=== PATIENT | male | born 1955 | race Hispanic/Latino ===

== ENCOUNTER 2023-06-20 19:29 | Inpatient (IN) | payer OTHER, SELFPAY ==
[2023-06-20 20:40] LABS: Absolute Lymphocytes (CBC) 0.4 K/uL (0.7-4.9); Hematocrit 37.5 % (39.6-49.0); Lymphocytes % 2.3 % (15.3-44.8); MPV 7.1 fL (7.6-11.3); RBC Red Blood Cell Count 4.17 M/uL (4.33-5.43)
[2023-06-20 20:48] LABS: Protime INR 1.14
[2023-06-20 20:59] LABS: Albumin 3.3 g/dL (3.4-5.0); Bilirubin Total 0.4 mg/dL (0.2-1.0); Potassium 3.9 mEq/L (3.5-5.1); Protein, Total 7.7 g/dL (6.4-8.2)
--- NOTE | 2023-06-20 21:00 | RAD REPORT ---
EXAM DESCRIPTION: RAD - Chest Single View - 06/20/2023 8:46 pm CLINICAL HISTORY: FEVER Chest pain. COMPARISON: No comparisons FINDINGS: Portable technique limits examination quality. Moderate opacity in the right lung base likely represents a pneumonia. The heart is normal in size. N o displaced fractures. IMPRESSION: Developing right lower lobe pneumonia.
--- NOTE | 2023-06-20 21:13 | RAD REPORT ---
EXAM DESCRIPTION: CT - Chest Abd Pelvis Wo Con - 06/20/2023 9:02 pm CLINICAL HISTORY: Chest and abdomen pain. Cough;Abdominal distention COMPARISON: No comparisons TECHNIQUE: A limited noncontrast study was performed. All CT scans are performed using dose optimization technique as appropriate and may include automated exposure control or mA/KV adjustment according to patient size. FINDINGS: The lungs are clear.No pleural or pericardial effusion.Calcified right pleural inferiorly. No intrathoracic adenopathy.Calcified mediastinal and hilar lymphadenopathy. The liver demonstrates cysts. Spleen, pancreas, adrenal glands and kidneys are within normal limits. No bowel obstruction, free air, free fluid or abscess. Normal appendix. Moderate stool is present thr oughout the colon. No pathologic lymphadenopathy in the abdomen or pelvis. Moderate lumbar degenerative changes. T8 and T9 fusion. Suprapubic catheter is in place. The prostate gland is significantly enlarged. IMPRESSION: Significant prostatomegaly.Suprapubic catheter is in place. Moderate stool throughout the colon.
[2023-06-20] MEDS ORDERED: FAMOTIDINE 20 MG/2 ML VIAL IV ONE (21:36)
[2023-06-20] MEDS ORDERED: CEFTRIAXONE 1000 MG/VIAL ONE (21:36)
[2023-06-20] MEDS ORDERED: NA CHLORIDE 0.9% 2,000 ML ONE (21:36)
[2023-06-20] MEDS ORDERED: ACETAMINOPHEN 500 MG TAB ONE (21:36)
[2023-06-20 21:47] LABS: Magnesium 2.6 mg/dL (1.6-2.4)
--- NOTE | 2023-06-20 21:54 | ER ---
Nurse's Notes [facility] Name: Kev Garduno Age: 68 yrs Sex: Male : 1955 Arrival Date: 06/20/2023 Time: 19:29 Bed 15 Private MD: Diagnosis: Enlarged prostate with lower urinary tract symptoms;Pneumonia due to other specified bacteria;Fever, unspecified;Other mechanical complication of urinary (indwelling) catheter;Weakness;Unspecified kidney failure;Elevated white blood cell count Presentation: 06/20 19:58 Chief complaint: Patient's son or daughter states: pt was found today complaining of cm10 weakness, vomiting and fever. Deny any sick contacts. Pt noted to have a suprapubic catheter in place that he is supposed to have removed on July 08. Coronavirus screen: Vaccine status: Patient reports receiving the 2nd dose of the covid vaccine. Ebola Screen: No symptoms or risks identified at this time. Initial Sepsis Screen: Does the patient meet any 2 criteria? HR > 90 bpm. Does the patient have a suspected source of infection? No. Patient's initial sepsis screen is negative. Risk Assessment: Do you want to hurt yourself or someone else? Patient reports no desire to harm self or others. Onset of symptoms was June 20, 2023. 19:58 Method Of Arrival: Wheelchair cm10 19:58 Acuity: BETTIE 3 cm10 Triage Assessment: 20:01 General: Appears in no apparent distress. comfortable, Behavior is calm, cooperative. cm10 Pain: Denies pain. GI: Reports nausea, vomiting. Historical: - Allergies: 20:00 No Known Allergies; cm10 - PMHx: 20:00 enlarged prostate; cm10 - Immunization history:: Adult Immunizations up to date. - Social history:: Smoking status: Patient/guardian denies using tobacco. Screenin:41 [facility] ED Fall Risk Assessment (Adult) History of falling in the last 3 months, vc1 including since admission No falls in past 3 months (0 pts) Confusion or Disorientation No (0 pts) Intoxicated or Sedated No (0 pts) Impaired Gait No (0 pts) Mobility Assist Device Used No (0 pt) Altered Elimination No (0 pt) Score/Fall Risk Level 0 - 2 = Low Risk Oriented to surroundings, Maintained a safe environment, Educated pt \T\ family on fall prevention, incl call for assistance when getting out of bed. Abuse screen: Denies threats or abuse. Nutritional screening: No deficits noted. Tuberculosis screening: No symptoms or risk factors identified. Assessment: 20:41 General: Appears in no apparent distress. comfortable, Behavior is calm, cooperative, nj1 appropriate for age. Pain: Denies pain. Neuro: Level of Consciousness is awake, alert, obeys commands, Oriented to person, place, time, situation. Cardiovascular: Patient's skin is warm and dry. Respiratory: Airway is patent Respiratory effort is even, unlabored. 21:30 Reassessment: No changes from previously documented assessment. Patient and/or family vc1 updated on plan of care and expected duration. Pain level reassessed. Patient is alert, oriented x 3, equal unlabored respirations, skin warm/dry/pink. Assumed care from RUI Younger. 22:30 Reassessment: No changes from previously documented assessment. Patient and/or family vc1 updated on plan of care and expected duration. Pain level reassessed. Patient is alert, oriented x 3, equal unlabored respirations, skin warm/dry/pink. Patient denies pain at this time. Vital Signs: 19:58 BP 125 / 55; Pulse 103; Resp 18; Temp 99.4; Pulse Ox 94% on R/A; Weight 56 kg; Height 6 cm10 ft. 0 in. ; Pain 0/10; 21:42 BP 119 / 64; Pulse 97; Resp 17; Pulse Ox 100% ; vc1 22:30 BP 108 / 67; Pulse 95; Resp 19; Pulse Ox 99% ; vc1 19:58 Body Mass Index 16.74 (56.00 kg, 182.88 cm) cm10 19:58 Pain Scale: Adult cm10 ED Course: 19:33 Patient arrived in ED. ts1 20:00 Triage completed. cm10 20:01 Arm band placed on. cm10 20:08 Dav Benitez MD is Attending Physician. zeke 20:15 Inserted saline lock: 20 gauge in right forearm, using aseptic technique. Blood kl collected. 20:24 Carisa Sorensen, URI is Primary Nurse. nj1 20:47 Chest Single View XRAY In Process Unspecified. EDMS 21:03 CT Chest Abdomen Pelvis W/O Contrast In Process Unspecified. EDMS 21:41 Patient has correct armband on for positive identification. Bed in low position. Call vc1 light in reach. Client placed on continuous cardiac and pulse oximetry monitoring. NIBP monitoring applied. 21:51 Jim Mensah MD is Hospitalizing Provider. [facility] 21:54 Delon Nicholson MD is Hospitalizing Provider. id1 21:54 Urinalysis w/ reflexes Sent. rv1 23:46 No provider procedures requiring assistance completed. Patient admitted, IV remains in vc1 place. Administered Medications: 21:39 Drug: Famotidine IVP 20 mg Route: IVP; Site: right forearm; nj1 21:39 Drug: Acetaminophen PO 1000 mg Route: PO; nj1 21:40 Drug: NS 0.9% IV 1000 ml Route: IV; Rate: 1 bolus; Site: right forearm; vc1 21:40 Drug: Rocephin IV 1 grams Route: IV; Rate: per protocol; Site: right forearm; vc1 22:03 Drug: levofloxacin IVPB 500 mg Volume: 100 ml; Route: IVPB; Infused Over: 60 mins; vc1 Site: right forearm; 22:43 Drug: NS 0.9% IV 1000 ml Route: IV; Rate: 125 ml/hr; Site: right forearm; vc1 Medication: 21:41 VIS not applicable for this client. vc1 Outcome: 21:53 Decision to Hospitalize by Provider. [facility] 23:46 Admitted to Med/surg accompanied by nurse, via stretcher, room 220. vc1 23:46 Condition: good 23:46 Instructed on the need for admit. 23:46 Patient left the ED. vc1 Signatures: Dispatcher [employer] EDMS Christin Mercado RN RN kl Anderson, Corey, MD MD cha Attema, Lee, FISH TECHNOLOGIST-C FISH TECHNOLOGIST-Cla1 Aura Dupree RN RN vc1 Amna Kilgore rv1 Carisa Sorensen RN RN nj1 Olivia Justin PAS PAS ts1 Griselda Tee RN RN cm10
--- NOTE | 2023-06-20 21:54 | EDPHYS ---
Physician Documentation [facility] Name: Kev Garduno Age: 68 yrs Sex: Male : 1955 Arrival Date: 06/20/2023 Time: 19:29 Bed 15 Private MD: ED Physician Dav Benitez HPI: 06/20 20:36 This 68 yrs old Male presents to ER via Wheelchair with complaints of Fever, zeke Nausea/Vomiting, General Weakness. 20:36 The patient reports fever, that was measured at 102 degrees Fahrenheit. Onset: The zeke symptoms/episode began/occurred 2 day(s) ago. Modifying factors: there are no obvious modifying factors. Associated signs and symptoms: Pertinent positives: dysuria. Severity of symptoms: At their worst the symptoms were mild in the emergency department the symptoms are unchanged. The patient has not experienced similar symptoms in the past. Historical: - Allergies: 20:00 No Known Allergies; cm10 - PMHx: 20:00 enlarged prostate; cm10 - Immunization history:: Adult Immunizations up to date. - Social history:: Smoking status: Patient/guardian denies using tobacco. ROS: 20:37 Eyes: Negative for injury, pain, redness, and discharge, ENT: Negative for injury, zeke pain, and discharge, Neck: Negative for injury, pain, and swelling, Cardiovascular: Negative for chest pain, palpitations, and edema, Respiratory: Negative for shortness of breath, cough, wheezing, and pleuritic chest pain, Abdomen/GI: Negative for abdominal pain, nausea, vomiting, diarrhea, and constipation, Back: Negative for injury and pain, MS/Extremity: Negative for injury and deformity, Skin: Negative for injury, rash, and discoloration, Neuro: Negative for headache, weakness, numbness, tingling, and seizure, Psych: Negative for depression, anxiety, suicide ideation, homicidal ideation, and hallucinations, Allergy/Immunology: Negative for hives, rash, and allergies, Endocrine: Negative for neck swelling, polydipsia, polyuria, polyphagia, and marked weight changes, Hematologic/Lymphatic: Negative for swollen nodes, abnormal bleeding, and unusual bruising. 20:37 Constitutional: Positive for chills, fatigue, fever. 20:37 : Positive for burning with urination. Exam: 20:37 Head/Face: Normocephalic, atraumatic. Eyes: Pupils equal round and reactive to light, zeke extra-ocular motions intact. Lids and lashes normal. Conjunctiva and sclera are non-icteric and not injected. Cornea within normal limits. Periorbital areas with no swelling, redness, or edema. ENT: Nares patent. No nasal discharge, no septal abnormalities noted. Tympanic membranes are normal and external auditory canals are clear. Oropharynx with no redness, swelling, or masses, exudates, or evidence of obstruction, uvula midline. Mucous membranes moist. Neck: Trachea midline, no thyromegaly or masses palpated, and no cervical lymphadenopathy. Supple, full range of motion without nuchal rigidity, or vertebral point tenderness. No Meningismus. Chest/axilla: Normal chest wall appearance and motion. Nontender with no deformity. No lesions are appreciated. Cardiovascular: Regular rate and rhythm with a normal S1 and S2. No gallops, murmurs, or rubs. Normal PMI, no JVD. No pulse deficits. Respiratory: Lungs have equal breath sounds bilaterally, clear to auscultation and percussion. No rales, rhonchi or wheezes noted. No increased work of breathing, no retractions or nasal flaring. Abdomen/GI: Soft, non-tender, with normal bowel sounds. No distension or tympany. No guarding or rebound. No evidence of tenderness throughout. Back: No spinal tenderness. No costovertebral tenderness. Full range of motion. Male : Normal genitalia with no discharge or lesions. Skin: Warm, dry with normal turgor. Normal color with no rashes, no lesions, and no evidence of cellulitis. MS/ Extremity: Pulses equal, no cyanosis. Neurovascular intact. Full, normal range of motion. Neuro: Awake and alert, GCS 15, oriented to person, place, time, and situation. Cranial nerves II-XII grossly intact. Motor strength 5/5 in all extremities. Sensory grossly intact. Cerebellar exam normal. Normal gait. Psych: Awake, alert, with orientation to person, place and time. Behavior, mood, and affect are within normal limits. 20:37 Constitutional: The patient appears febrile. 20:40 ECG was reviewed by the Attending Physician. [facility] Vital Signs: 19:58 BP 125 / 55; Pulse 103; Resp 18; Temp 99.4; Pulse Ox 94% on R/A; Weight 56 kg; Height 6 cm10 ft. 0 in. ; Pain 0/10; 21:42 BP 119 / 64; Pulse 97; Resp 17; Pulse Ox 100% ; vc1 22:30 BP 108 / 67; Pulse 95; Resp 19; Pulse Ox 99% ; vc1 19:58 Body Mass Index 16.74 (56.00 kg, 182.88 cm) cm10 19:58 Pain Scale: Adult cm10 MDM: 20:08 Patient medically screened. zeke 20:38 Differential diagnosis: viral Infection, bacterial infection, URI, bronchitis, zeke pneumonia UTI, gastroenteritis. Differential Diagnosis altered mental status, sepsis, flu. Data reviewed: vital signs, nurses notes, lab test result(s), EKG, radiologic studies, CT scan, plain films. Consideration of Admission/Observation Escalation of care including admission/observation considered. I considered the following discharge prescriptions or medication management in the emergency department Medications were administered in the Emergency Department. See MAR. Test considered but Not performed: Ultrasound no abd usg. Care significantly affected by the following chronic conditions: bph. Counseling: I had a detailed discussion with the patient and/or guardian regarding: the historical points, exam findings, and any diagnostic results supporting the discharge/admit diagnosis, lab results, radiology results. 06/20 20:16 Order name: Blood Culture Adult (2) 06/20 20:16 Order name: CBC with Diff; Complete Time: 21:28 06/20 20:16 Order name: CMP; Complete Time: 21:47 06/20 20:16 Order name: Lactate w/ 2H reflex if indic.; Complete Time: 21:28 06/20 20:16 Order name: Protime (+inr); Complete Time: 21:28 06/20 20:16 Order name: Ptt, Activated; Complete Time: 21:28 06/20 20:16 Order name: Urinalysis w/ reflexes 06/20 20:19 Order name: COVID-19 SARS RT PCR; Complete Time: 21:28 la1 06/20 20:19 Order name: Flu; Complete Time: 21:28 la 06/20 21:18 Order name: NT PRO-BNP; Complete Time: 21:47 EDMS 06/20 21:18 Order name: Magnesium; Complete Time: 21:47 EDMS 06/20 22:15 Order name: Urine Culture EDCO 06/20 20:16 Order name: Chest Single View XRAY; Complete Time: 21:28 06/20 20:27 Order name: CT Chest Abdomen Pelvis W/O Contrast; Complete Time: 21:28 [facility] 06/20 20:16 Order name: EKG; Complete Time: 20:17 06/20 20:16 Order name: Accucheck; Complete Time: 21:41 06/20 20:16 Order name: Cardiac monitoring; Complete Time: 21:55 06/20 20:16 Order name: EKG - Nurse/Tech; Complete Time: 20:40 06/20 20:16 Order name: IV Saline Lock - Large Bore; Complete Time: 20:40 06/20 20:16 Order name: Labs collected and sent; Complete Time: 20:40 06/20 20:16 Order name: O2 Per Protocol; Complete Time: 20:40 06/20 20:16 Order name: O2 Sat Monitoring; Complete Time: 20:40 06/20 20:16 Order name: Vital Signs; Complete Time: 21:40 kl EC:40 Rate is 98 beats/min. Rhythm is regular. QRS [place] is Normal. [place] interval is normal. QRS zeke interval is normal. QT interval is normal. No Q waves. T waves are Normal. No ST changes noted. Clinical impression: NSR w/ Non-specific ST/T Changes and No evidence of ischemia. Interpreted by me. Reviewed by me. Administered Medications: 21:39 Drug: Famotidine IVP 20 mg Route: IVP; Site: right forearm; nj1 21:39 Drug: Acetaminophen PO 1000 mg Route: PO; nj1 21:40 Drug: NS 0.9% IV 1000 ml Route: IV; Rate: 1 bolus; Site: right forearm; vc1 21:40 Drug: Rocephin IV 1 grams Route: IV; Rate: per protocol; Site: right forearm; vc1 22:03 Drug: levofloxacin IVPB 500 mg Volume: 100 ml; Route: IVPB; Infused Over: 60 mins; vc1 Site: right forearm; 22:43 Drug: NS 0.9% IV 1000 ml Route: IV; Rate: 125 ml/hr; Site: right forearm; vc1 Disposition Summary: 06/20/23 21:53 Hospitalization Ordered Hospitalization Status: Inpatient Admission zeke Location: Telemetry/MedSurg (Inpatient) zeke Condition: Fair zeke Problem: new zeke Symptoms: have improved zeke Bed/Room Type: Standard zeke Provider: Delon Nicholson(06/20/23 21:54) la1 Room Assignment: 204(06/20/23 22:31) cg Diagnosis - Enlarged prostate with lower urinary tract symptoms zeke - Pneumonia due to other specified bacteria zeke - Fever, unspecified zeke - Other mechanical complication of urinary (indwelling) catheter zeke - Weakness zeke - Unspecified kidney failure zeke - Elevated white blood cell count zeke Forms: - Medication Reconciliation Form zeke - SBAR form zeke Signatures: Dispatcher [employer] EDMS Christin Mercado RN Dav Kunz MD MD cha Attema, Lee, ICE CREAM MAKER-C ICE CREAM MAKER-Cla1 Trisha Osullivan RN RN Aura Curiel RN RN vc1 Carisa Sorensen RN RN nj1 Griselda Tee RN RN cm10 Corrections: (The following items were deleted from the chart) 21: 20:27 MAGNESIUM+C.LAB.BRZ ordered. EDMS EDMS 21:19 20:27 PROBNP+C.LAB.BRZ ordered. EDMS EDMS 21:54 21:53 Jim Mensah cha la1 22:31 21:53 zeke cg
[2023-06-20] MEDS ORDERED: Levofloxacin500mg IV 500 MG/100 ML BAG IV ONE (22:08)
[2023-06-20 22:11] LABS: Urine Bacteria 20-50 /HPF (<20); Urine Bilirubin NEGATIVE (Negative); Urine Blood 1+ (Negative); Urine Clarity Extremely Turbid (Clear); Urine Color Light-Yellow (Yellow); Urine Glucose NEGATIVE (Negative); Urine Mucus 1+ /HPF (None Seen); Urine Protein NEGATIVE (Negative); Urine RBC 21-50 /HPF (None Seen); Urine Urobilinogen Normal (Normal)
--- NOTE | 2023-06-20 22:30 | P.HP ---
Certification for Inpatient Patient admitted to: Inpatient With expected LOS: >2 Midnights Patient will require the following post-hospital care: None Practitioner: I am a practitioner with admitting privileges, knowledge of patient current condition, hospital course, and medical plan of care. Services: Services provided to patient in accordance with Admission requirements found in Title 42 Section 412.3 of the Code of Federal Regulations Patient History Date of Service: 06/20/23 Reason for admission: Sepsis, UTI History of Present Illness: 68-year-old male with history of BPH who has a suprapubic catheter in place presents to the emergency department with chief complaint of general weakness, fever. He lives in [place], is primarily German-speaking. His family at bedside report that over the last 24 hours he has been feeling very weak and like he had a fever. Approximately 4 to 6 months ago he was having difficulty urinating and at that time a suprapubic catheter was inserted by urologist. He has not had to use that catheter for a few months now, he is able to urinate normally through his urethra. He is scheduled for an appointment with his urologist on July 08 likely to have his suprapubic catheter removed. He does have a history of urinary tract infections in the past. SIRS criteria were present including leukocytosis, tachycardia, source of infection confirmed with UTI meets criteria for sepsis now without severe sepsis or septic shock. He is given antibioticsLevaquin after blood cultures were drawn. He will need to be admitted for sepsis, UTI. - Past Medical/Surgical History -: BPH -: Prostate surgery Psychosocial/ Personal History: Patient is from [place] where he lives with his family - Family History Family History: Reviewed- Non-Contributory - Social History Smoking Status: Never smoker Alcohol use: No CD- Drugs: No Caffeine use: Yes Place of Residence: Home Review of Systems 10-point ROS is otherwise unremarkable General: Fever, Chills, Weakness Physical Examination - Physical Exam General: Alert, In no apparent distress, Oriented x3 HEENT: Atraumatic, PERRLA, Mucous membr. moist/pink, EOMI, Sclerae nonicteric Neck: Supple, 2+ carotid pulse no bruit, No LAD, Without JVD or thyroid abnormality Respiratory: Clear to auscultation bilaterally, Normal air movement Cardiovascular: Regular rate/rhythm, Normal S1 S2 Gastrointestinal: Normal bowel sounds, No tenderness Musculoskeletal: No tenderness Integumentary: No rashes Neurological: Normal gait, Normal speech, Normal strength at 5/5 x4 extr, Normal tone, Normal affect Lymphatics: No axilla or inguinal lymphadenopathy External genitalia: Other (Suprapubic catheter in place) - Studies Laboratory Data (last 24 hrs) 06/20/23 20:27: Magnesium Cancelled 06/20/23 20:15: PT 12.5, INR 1.14, APTT 28.6 06/20/23 20:15: Sodium 131 L, Potassium 3.9, BUN 46 H, Creatinine 1.52 H, Glucose 145 H, Magnesium 2.6 H, Total Bilirubin 0.4, AST 13 L, ALT 25, Alkaline Phosphatase 83 06/20/23 20:15: WBC 18.50 H, Hgb 12.2 L, Hct 37.5 L, Plt Count 276 Microbiology Data (last 24 hrs): 06/20/23 20:35 Nasopharnyx Influenza Type A Antigen Screen - Final 06/20/23 20:35 Nasopharnyx Influenza Type B Antigen Screen - Final Assessment and Plan - Plan Assessment: Sepsis secondary to UTI complicated with indwelling suprapubic catheter BPH Plan: Sepsis secondary to UTI complicated with indwelling suprapubic catheter Blood and urine cultures obtained, surgical tear present including tachycardia, leukocytosis. Continue to antibiotics-Levaquin. Patient does not utilize his suprapubic catheter and has not for last few months, he urinates through his urethra without difficulty currently. CT does show enlarged prostate. He has an appointment with his urologist in [place] on July 08 likely to have a suprapubic catheter removed. Follow blood/urine culture. BPH Continue home medication. DVT PPX: Lovenox Code status: Full Discharge Plan: Home Plan to discharge in: 72 Hours - Advance Directives Does patient have a Living Will: No Does patient have a Durable POA for Healthcare: No - Code Status/Comfort Care Code Status Assessed: Yes (Full code) Critical Care: No Time Spent Managing Pts Care (In Minutes): 55
[2023-06-20] MEDS ORDERED: ONDANSETRON 4 MG/2 ML VIAL IV PRN (23:30)
[2023-06-20] MEDS: Ringers Lactate 1,000 ML IV SCH (23:43)
[2023-06-21 00:17] VITALS: BMI 23.2
[2023-06-21 03:12] LABS: Potassium 3.8 mEq/L (3.5-5.1)
[2023-06-21 03:31] LABS: Absolute Lymphocytes (CBC) 0.6 K/uL (0.7-4.9); Hematocrit 32.3 % (39.6-49.0); Lymphocytes % 2.9 % (15.3-44.8); MCV 90.1 fL (80-100); MPV 7.6 fL (7.6-11.3); RBC Red Blood Cell Count 3.58 M/uL (4.33-5.43)
[2023-06-21] MEDS: ACETAMINOPHEN 500 MG TAB PO PRN ×2 (04:04→20:09)
[2023-06-21] MEDS ORDERED: POTASSIUM 25 MEQ EFFERV TAB PO ONE (08:00)
[2023-06-21 08:20] LABS: Blood Morphology Comment NOT SEEN (NOT SEEN); Platelet Estimate ADEQ; White Blood Cell Scan OK (OK)
[2023-06-21] MEDS: ENOXAPARIN 40 MG/0.4 ML SQ SCH (08:26)
[2023-06-21] MEDS ORDERED: Levofloxacin500mg IV 500 MG/100 ML BAG IV SCH (09:00)
[2023-06-21] MEDS: Ringers Lactate 1,000 ML IV SCH ×2 (09:37→18:33)
--- NOTE | 2023-06-21 11:06 | P.PN ---
Subjective Date of Service: 06/21/23 Chief Complaint: Sepsis, UTI Mr. Kev Garduno is Omani-speaking only. The following history was obtained with the assistance of [employer] certified O[place]i-Pashto computer forensics examiner, Mr. Lee, (ID# [id number]). Overnight, he spiked a fever to 101.3 F. This morning, he states that he is experiencing fevers, chills, and night sweats. He reports having a suprapubic catheter for 10 months, and it has been exchanged 2 times over this timeframe. He denies any chest pain, palpitations, or shortness of breath. Review of Systems 10-point ROS is otherwise unremarkable General: Fever, Chills, Sweats Physical Examination - Vital Signs Temperature: 97.8 F Blood Pressure: 101/53 Pulse: 77 Respirations: 20 Pulse Ox (%): 99 - Physical Exam General: Alert, In no apparent distress, Oriented x3 HEENT: Atraumatic, Mucous membr. moist/pink, Sclerae nonicteric Neck: JVD not distended Respiratory: Clear to auscultation bilaterally, Normal air movement Cardiovascular: No edema, Regular rate/rhythm, Normal S1 S2, No gallops, No rubs, No murmurs Gastrointestinal: Normal bowel sounds, Soft and benign, Non-distended Musculoskeletal: No clubbing Integumentary: No rashes Neurological: Normal speech, Normal affect Urinary: Suprapubic catheter - Studies Laboratory Data (last 24 hrs) 06/20/23 20:27: Magnesium Cancelled 06/20/23 20:15: PT 12.5, INR 1.14, APTT 28.6 06/20/23 20:15: Sodium 131 L, Potassium 3.9, BUN 46 H, Creatinine 1.52 H, Glucose 145 H, Magnesium 2.6 H, Total Bilirubin 0.4, AST 13 L, ALT 25, Alkaline Phosphatase 83 06/20/23 20:15: WBC 18.50 H, Hgb 12.2 L, Hct 37.5 L, Plt Count 276 Microbiology Data (last 24 hrs): 06/20/23 20:35 Nasopharnyx Influenza Type A Antigen Screen - Final 06/20/23 20:35 Nasopharnyx Influenza Type B Antigen Screen - Final Assessment And Plan - Plan # Sepsis likely secondary to Suprapubic Catheter-Associated Urinary Tract Infection and Right Lower Lobe Pneumonia - POA # Benign Prostatic Hyperplasia with Suprapubic Catheter placement (~ 10 months ago) # Microscopic Hematuria He met SIRS criteria based on temperature > 100.9 F, HR > 90 bpm, and WBC > 12,000, and the suspected source is a urinary tract infection and pneumonia. - Sepsis order set was initiated - Urinalysis = 1+ blood, 1+ nitrite, 500 leukocyte esterase, 2150 RBCs, >50 WBCs, 510 hyaline casts - Chest x-ray = "developing right lower lobe pneumonia." - CT chest/abdomen/pelvis = "significant prostatomegaly. Suprapubic catheter is in place. Moderate stool throughout the colon." - Initial Lactate was 2.0 - Blood cultures drawn - Broad spectrum antibiotics started: Levofloxacin - In regards to fluids: - 30 mL/kg of IV fluids was not administered given SBP > 90, MAP > 65, lactic acid < 4 # KDIGO Stage I Acute Kidney Injury - improved - Creatinine = 1.52 -> 1.28 - Urinalysis = 1+ blood, 1+ nitrite, 500 leukocyte esterase, 2150 RBCs, >50 WBCs, 510 hyaline casts - Monitor creatinine and urine output - If worsening, obtain renal ultrasound - Renally dose medications Delon Nicholson M.D.
[2023-06-21] MEDS: TAMSULOSIN 0.4 MG SR CAP PO SCH (20:04)
[2023-06-22 01:08] VITALS: O2SAT 98
[2023-06-22 03:29] LABS: Hematocrit 30.5 % (39.6-49.0); Lymphocytes % 15.3 % (15.3-44.8); MCV 89.9 fL (80-100); MPV 7.4 fL (7.6-11.3)
[2023-06-22 03:45] LABS: Potassium 3.9 mEq/L (3.5-5.1)
[2023-06-22] MEDS: Ringers Lactate 1,000 ML IV SCH ×2 (04:31→14:16)
[2023-06-22] MEDS: ENOXAPARIN 40 MG/0.4 ML SQ SCH (08:02)
[2023-06-22] MEDS ORDERED: POTASSIUM CL SA 10 MEQ TAB PO ONE (09:00)
--- NOTE | 2023-06-22 16:58 | P.PN ---
Subjective Date of Service: 06/22/23 Chief Complaint: Sepsis, UTI Mr. Kev Garduno is [place]in-speaking only. The following history was obtained with the assistance of [employer] certified [place] clinical transplant coordinator, Mr. De Leon, (ID# [id number]). He appears much improved this morning. He reports low-grade temperatures and chills. Urine culture has returned positive for gram-negative rods. Speciation is pending. He denies any chest pain, palpitations, or shortness of breath. Review of Systems 10-point ROS is otherwise unremarkable General: Fever, Sweats Physical Examination - Vital Signs Temperature: 98.0 F Blood Pressure: 153/65 Pulse: 71 Respirations: 16 Pulse Ox (%): 100 Assessment And Plan - Plan - Physical Exam General: Alert, In no apparent distress, Oriented x3 HEENT: Atraumatic, Sclerae nonicteric Respiratory: Clear to auscultation bilaterally, Normal air movement Cardiovascular: No edema, Regular rate/rhythm, Normal S1 S2, No gallops, No rubs, No murmurs Gastrointestinal: Normal bowel sounds, Soft and benign, Non-distended Musculoskeletal: No clubbing Integumentary: No rashes Neurological: Normal speech, Normal affect Urinary: Suprapubic catheter # Sepsis likely secondary to Gram-Negative Suprapubic Catheter-Associated Urinary Tract Infection and Right Lower Lobe Pneumonia - POA # Benign Prostatic Hyperplasia with Suprapubic Catheter placement (~ 10 months ago) # Microscopic Hematuria He met SIRS criteria based on temperature > 100.9 F, HR > 90 bpm, and WBC > 12,000, and the suspected source is a urinary tract infection and pneumonia. - Sepsis order set was initiated - Urinalysis = 1+ blood, 1+ nitrite, 500 leukocyte esterase, 2150 RBCs, >50 WBCs, 510 hyaline casts - Chest x-ray = "developing right lower lobe pneumonia." - CT chest/abdomen/pelvis = "significant prostatomegaly. Suprapubic catheter is in place. Moderate stool throughout the colon." - Initial Lactate was 2.0 - Blood cultures drawn - Broad spectrum antibiotics started: Levofloxacin - In regards to fluids: - 30 mL/kg of IV fluids was not administered given SBP > 90, MAP > 65, lactic acid < 4 - Consulted Urology for suprapubic catheter exchange # KDIGO Stage I Acute Kidney Injury - resolved - Creatinine = 1.52 -> 1.28 -> 0.78 - Urinalysis = 1+ blood, 1+ nitrite, 500 leukocyte esterase, 2150 RBCs, >50 WBCs, 510 hyaline casts - Monitor creatinine and urine output - If worsening, obtain renal ultrasound - Renally dose medications Delon Nicholson M.D.
[2023-06-22] MEDS ORDERED: LEVOFLOXACIN 750MG/D5W 150 ML IV SCH (20:00)
[2023-06-22] MEDS: TAMSULOSIN 0.4 MG SR CAP PO SCH (20:01)
--- NOTE | 2023-06-22 20:40 | P.PN ---
Date of Service: 06/23/23 Subjective: ROS: 10 point ROS as noted above, otherwise negative Physical Exam: Gen: Alert,oriented, NAD HEENT: normal conjunctiva, sclera anicteric CV: regular rate & rhythm, no edema Pulm: non-labored respirations on room air, clear bilaterally Abd: soft, non-tender, non-distended MSK: no joint tenderness Neuro: normal speech, normal affect, moves all extremities Problem List: 1. Sepsis likely secondary to Gram-Negative Suprapubic Catheter-Associated UTI and Right Lower Lobe Pneumonia - POA 2. Benign Prostatic Hyperplasia with Suprapubic Catheter placement (~ 10 months ago) 3. Microscopic Hematuria 4. RUDDY, resolved PLAN UA: 1+ blood, 1+ nitrite, 500 leukocyte esterase, 2150 RBCs, >50 WBCs, 510 hyaline casts CXR(06/20): developing right lower lobe pneumonia CT chest/abdomen/pelvis(06/20): significant prostatomegaly. Suprapubic catheter is in place. Moderate stool throughout the colon Blood cultures: NGTD Urine culture: +GNR Continue Levaquin (06/22-) Urology consulted for suprapubic catheter exchange Continue flomax VTE: Lovenox
[2023-06-23] MEDS: Ringers Lactate 1,000 ML IV SCH ×2 (01:53→11:11)
[2023-06-23 04:02] LABS: Absolute Lymphocytes (CBC) 1.6 K/uL (0.7-4.9); Hematocrit 30.7 % (39.6-49.0); Lymphocytes % 15.9 % (15.3-44.8); MCV 89.4 fL (80-100); MPV 7.6 fL (7.6-11.3); RBC Red Blood Cell Count 3.44 M/uL (4.33-5.43)
[2023-06-23 04:19] LABS: Potassium 4.4 mEq/L (3.5-5.1)
[2023-06-23] MEDS: ENOXAPARIN 40 MG/0.4 ML SQ SCH (07:51)
[2023-06-23] MEDS ORDERED: AMOX/K CLAV 875 MG TAB PO SCH (12:30)
[2023-06-23 17:30] VITALS: BP 154/73; TEMP 98
--- NOTE | 2023-06-24 15:05 | EKG ---
Test Date: 2023-06-20 Test Time: 20:32:35 Scale Technician: RIAZ MEASUREMENT RESULTS: Intervals: Rate: 98 CA: 136 QRSD: 80 QT: 354 QTc: 451 Merna: P: 73 CA: 136 QRS: 27 T: 38 INTERPRETIVE STATEMENTS: Normal sinus rhythm Normal ECG No previous ECG available for comparison Electronically Signed On 06-24-23 14:58:29 CDT by Pieter Kimball
== END 2023-06-23 19:15 | disposition home or self-care (01) | DRG 698 ==
LOC: ER 19:29 → 2ND 22:23
PROVIDERS: ADMIT Internal Medicine; ATTEND Hospitalist
DX: T83.511A Infection and inflammatory reaction due to indwelling urethral catheter, initial encounter (principal); A41.50 Gram-negative sepsis, unspecified; J18.9 Pneumonia, unspecified organism; N17.9 Acute kidney failure, unspecified; N39.0 Urinary tract infection, site not specified; N40.1 Benign prostatic hyperplasia with lower urinary tract symptoms; B96.1 Klebsiella pneumoniae [K. pneumoniae] as the cause of diseases classified elsewhere; R31.29 Other microscopic hematuria; Z20.822 Contact with and (suspected) exposure to COVID-19
CPT/HCPCS: 36415; 71045; 71250; 74176; 80048; 80053; 81001; 83605; 83735; 83880; 85025; 85610; 85730; 87040; 87077; 87086; 87088; 87186; 87205; 87635; 87804; 93005; 96374; 96375; 99285; J0696; J1650; J7030; J7120